=== PATIENT | female | born 1990 ===

== ENCOUNTER 2017-05-11 07:12 | Day surgery (SDC) | payer BC ==
[2017-05-11] VITALS (12 sets, daily range): BP systolic 101–117; BP diastolic 47–65
[~2017-05-11] VITALS: Ht 160 cm; Wt 63.5 kg
[~2017-05-11 07:12] MED LIST: cefOXitin 1gm/D5W 55ml IVPB ONE
[2017-05-11] MEDS ORDERED: NKM (07:58)
[2017-05-11 08:27] LABS: BASOPHILS % (AUTO) 1.2 % (0.0-2.0); EOSINOPHILS % (AUTO) 2.1 % (0.0-3.0); LYMPHOCYTES % (AUTO) 33.3 % (20.0-45.0); MEAN CORPUSCULAR HEMOGLOBIN 31.6 PG (27.0-31.0); MEAN CORPUSCULAR HGB CONC 33.3 G/DL (32.0-36.0); MEAN CORPUSCULAR VOLUME 95 FL (80-99); MEAN PLATELET VOLUME 8.4 FL (6.5-10.1); MONOCYTES % (AUTO) 8.9 % (1.0-10.0); NEUTROPHILS % (AUTO) 54.5 % (45.0-75.0); PLATELET COUNT 153 K/UL (150-450); RED BLOOD COUNT 4.52 M/UL (4.20-5.40); RED CELL DISTRIBUTION WIDTH 11.4 % (11.6-14.8); WHITE BLOOD COUNT 6.9 K/UL (4.8-10.8)
--- NOTE | 2017-05-11 08:30 | History and Physical Report ---
DATE OF ADMISSION: 05/11/2017 PREOPERATIVE DIAGNOSIS: Missed . HISTORY OF PRESENT ILLNESS: The patient is followed by me for an early . On ultrasound, she had an intrauterine sac, but no pole or yolk sac. She had ultrasound one week prior and also her beta-HCG numbers does not correspond to the ultrasound findings. The patient started bleeding today, 05/10/2017. PAST MEDICAL HISTORY: None. SOCIAL HISTORY: The patient does not drink or smoke. She lives with her . REVIEW OF SYSTEMS: Bleeding since Thursday. No nausea, vomiting, or abdominal cramps. PHYSICAL EXAMINATION: HEAD AND NECK: Pupils are equal and reactive to light. LUNGS: Clear to auscultation bilaterally. CARDIAC: Regular rate and rhythm. ABDOMEN: Soft, nondistended, and nontender. PELVIC: By manual, six weeks uterus. Adnexa, no masses. EXTREMITIES: No cords. No cyanosis. No edema. ASSESSMENT: Missed . PLAN: Dilation and curettage. Sally Church M.D. DR: Rakesh JOB#: [id number] CC: ELIZABETH
[2017-05-11] MEDS ORDERED: LR 1000ml ONE (09:00)
[2017-05-11] MEDS ORDERED: Propofol 10mg/ml 100ml btl IV ONE (09:00)
[2017-05-11] MEDS ORDERED: Midazolam 2mg/2ml Inj ONE (09:00)
[2017-05-11] MEDS ORDERED: NS Irrig 1000ml ONE (09:00)
[2017-05-11] MEDS ORDERED: Sterile Water Irrig 1000ml IRRIG ONE (09:00)
[2017-05-11] MEDS ORDERED: fentaNYL 100 mcg/2 mL IV ONE (09:00)
[2017-05-11] MEDS ORDERED: cefOXitin 1gm Inj ONE (09:06)
[2017-05-11] MEDS ORDERED: Oxytocin 10 units/vial ONE (09:24)
[2017-05-11] MEDS ORDERED: Methylergonovine 0.2mg/ml Inj IM ONE (09:25)
--- NOTE | 2017-05-11 09:51 | Pre-Procedure Note/Attestation ---
Pre-Procedure Note/Attestation Complete Prior to Procedure Planned Procedure: not applicable Procedure Narrative: dilation and curettage Indications for Procedure Pre-Operative Diagnosis: missed Attestation I attest that I discussed the nature of the procedure; its benefits; risks and complications; and alternatives (and the risks and benefits of such alternatives ), prior to the procedure, with the patient (or the patient's legal resources representative). I attest that, if there was a reasonable possibility of needing a blood transfusion, the patient (or the patient's legal resources representative) was given the [facility] standardized written summary, pursuant to the Naveed Cat Blood Safety Act ([place] Health and Safety Code # 1645, as amended). I attest that I re-evaluated the patient just prior to the surgery and that there has been no change in the patient's H&P, except as documented below: RENETTA SANDERS May 11, 2017 09:51
--- NOTE | 2017-05-11 09:53 | Brief Operative Note ---
Immediate Post Operative Note Operative Note Pre-op Diagnosis: missed Procedure: dilation and curettage Post-op Diagnosis: same / incomplete Findings: consistent w/pre-op dx studies Surgeon: artur Anesthesiologist: Amado Anesthesia: general Specimen: yes Complications: none Condition: stable Fluids: 1l ns Estimated Blood Loss: minimal Drains: none Implant(s) used?: No RENETTA SANDERS May 11, 2017 09:53
[2017-05-11] MEDS ORDERED: LR 1000ml 1,000 ML IVLG SCH (10:11)
--- NOTE | 2017-05-11 10:14 | Anethesia Preoperative Eval ---
Anesthesia Pre-op PMH/ROS General Date of Evaluation: May 11, 2017 Time of Evaluation: 09:20 Anesthesiologist: Amado ASA Score: ASA 1 Mallampati Score Class I : Soft palate, uvula, fauces, pillars visible Class II: Soft palate, uvula, fauces visible Class III: Soft palate, base of uvula visible Class IV: Only hard plate visible Mallampati Classification: Class I Surgeon: Ranjit Diagnosis: Missed AB Surgical Procedure: D&C Anesthesia History: none Allergies: Coded Allergies: No Known Allergies (Unverified , 05/07/17) Medications: see eMAR Past Medical History Cardiovascular: Denies: HTN, CAD, [place], valve dz, arrhythmia, other Pulmonary: Denies: asthma, COPD, ALEC, other Gastrointestinal/Genitourinary: Denies: GERD, CRI, ESRD, other Neurologic/Psychiatric: Denies: dementia, CVA, depression/anxiety, TIA, other Endocrine: Denies: DM, hypothyroidism, steroids, other HEENT: Denies: cataract (L), cataract (R), glaucoma, [place] (L), [place] (R), other Hematology/Immune: Denies: anemia, DVT, bleeding disorder, other Musculoskeletal/Integumentary: Denies: OA, RA, DJD, DDD, edema, other PMH Narrative: Denies PSxH Narrative: No prior surgery Anesthesia Pre-op Phys. Exam Physician Exam Last Vital Signs Date Time Temp Pulse Resp B/P (MAP) Pulse Ox O2 Delivery O2 Flow Rate FiO2 05/11/17 08:01 97.9 52 18 110/55 100 Room Air Constitutional: NAD Neurologic: CN 2-12 intact Cardiovascular: RRR, no M/R/G Respiratory: CTA Gastrointestinal: S/NT/ND Airway Exam Mallampati Score: Class I MO: full ROM: full Teeth: intact Anesthesia Pre-op A/P Labs Hematology Test 05/11/17 08:20 White Blood Count 6.9 K/UL (4.8-10.8) Red Blood Count 4.52 M/UL (4.20-5.40) Hemoglobin 14.3 G/DL (12.0-16.0) Hematocrit 42.9 % (37.0-47.0) Mean Corpuscular Volume 95 FL (80-99) Mean Corpuscular Hemoglobin 31.6 PG (27.0-31.0) H Mean Corpuscular Hemoglobin Concent 33.3 G/DL (32.0-36.0) Red Cell Distribution Width 11.4 % (11.6-14.8) L Platelet Count 153 K/UL (150-450) Mean Platelet Volume 8.4 FL (6.5-10.1) Neutrophils (%) (Auto) 54.5 % (45.0-75.0) Lymphocytes (%) (Auto) 33.3 % (20.0-45.0) Monocytes (%) (Auto) 8.9 % (1.0-10.0) Eosinophils (%) (Auto) 2.1 % (0.0-3.0) Basophils (%) (Auto) 1.2 % (0.0-2.0) Risk Assessment & Plan Assessment: Healthy female for D&C Plan: GA, TIVA Pre-Antibiotics Drug: Cefoxitin Given Within 1 Hr of Incision: Yes Time Given: 09:45 TOREY RENTERIA M.D. May 11, 2017 10:14
[2017-05-11] MEDS ORDERED: Midazolam 2mg/2ml Inj IVP PRN (10:15)
[2017-05-11] MEDS ORDERED: fentaNYL 100 mcg/2 mL IV PRN (10:15)
--- NOTE | 2017-05-11 10:15 | Immediate Post-Op Evaluation ---
Immediate Post-Op Evalulation Immediate Post-Op Evalulation Procedure: D&C Date of Evaluation: May 11, 2017 Time of Evaluation: 10:35 IV Fluids: 500 Blood Pressure Systolic: 108 Blood Pressure Diastolic: 57 Pulse Rate: 55 Respiratory Rate: 12 O2 Sat by Pulse Oximetry: 99 Temperature (Fahrenheit): 98.8 Pain Score (1-10): 0 Nausea: No Vomiting: No Complications No complication Patient Status: awake, patent, none Hydration Status: adequate Drug: Cefoxitin Given Within 1 Hr of Incision: Yes Time Given: 09:45 TOREY RENTERIA M.D. May 11, 2017 10:15
--- NOTE | 2017-05-11 10:30 | 48 Hour Post Anesthesia Eval ---
Post Anesthesia Evaluation Procedure: D&C Date of Evaluation: May 11, 2017 Time of Evaluation: 11:10 Blood Pressure Systolic: 117 0: 58 Pulse Rate: 58 Respiratory Rate: 16 O2 Sat by Pulse Oximetry: 100 Airway: patent Nausea: No Vomiting: No Pain Intensity: 0 Hydration Status: adequate Cardiopulmonary Status: Stable Mental Status/LOC: patient returned to baseline Follow-up Care/Observations: As per surgery Post-Anesthesia Complications: No anesthetic complication Follow-up care needed: N/A TOREY RENTERIA M.D. May 11, 2017 10:30
[2017-05-11] MEDS ORDERED: LR 1000ml 1,000 ML IV SCH (12:11)
[2017-05-11] MEDS ORDERED: HYDROmorphone 1mg/ml Carpuject SUBQ PRN (16:01)
[2017-05-11] MEDS ORDERED: D5 1/2NS 1,000 ML IV SCH (16:01)
[2017-05-11] MEDS ORDERED: DiphenhydrAMINE 50mg/ml Inj IVP PRN (16:01)
[2017-05-11] MEDS ORDERED: Tylenol #3 tab (300mg/30mg) ORAL PRN (16:01)
[2017-05-11] MEDS ORDERED: Norco 5mg/325mg tab ORAL PRN (16:01)
--- NOTE | 2017-05-14 02:15 | Operative Note - Dictated ---
PREOPERATIVE DIAGNOSIS: Missed baby. POSTOPERATIVE DIAGNOSIS: Missed baby. PROCEDURE: Dilation and curettage. SURGEON: Sally Church M.D. MIX TECHNICIAN: None. ANESTHESIOLOGIST: Naveed Fischer M.D. ESTIMATED BLOOD LOSS: 100 mL. PROCEDURE IN DETAIL: After ensuring informed consent, the patient was taken to the operating room where general anesthesia was induced. The patient was sterilely prepped and draped. A speculum was placed in the vagina. Cervix was easily dilated to an 8 Hegar dilator. Suction curettage was performed with a #7. Sharp curette was performed to ensure an empty uterus. Excellent hemostasis was assured. At the end of the procedure, all instrument and lap count was correct x2. The patient was taken to the recovery area breathing on her own and in stable condition. Sally Church M.D. DR: TAE JOB#: [id number] CC:
== END 2017-05-11 13:25 | disposition home or self-care (01) ==
LOC: SUR 07:12
DX: O02.1 Missed abortion (principal); Z3A.00 Weeks of gestation of pregnancy not specified
CPT/HCPCS: 36415; 59820; 85025; J0694; J2250; J2704; J3010; J7120; 94003; 94150; J2590